=== PATIENT | female | born 1945 | race Caucasian/White ===

== ENCOUNTER 2022-05-23 09:07 | Inpatient (IN) | payer BC, OTHER ==
[~2022-05-23] VITALS: Ht 152.4 cm; Wt 68.5 kg
[~2022-05-23 09:07] MED LIST: ASPI-1749 PO; HYPERTENSION; METO50TE2 PO; SIMV-31 PO
[2022-05-23 09:22] VITALS: BP 158/67
--- NOTE | 2022-05-23 09:39 | NUR ---
Patient ambulated steady/even gait with RN assistance to bed 01.
--- NOTE | 2022-05-23 10:13 | NUR ---
PT TAKEN TO CT VIA W/C.
--- NOTE | 2022-05-23 10:34 | NUR ---
76F PRESENTS TO ED WITH C/O HEADACHE AND NAUSEA SINCE YESTERDAY. PT REPORTS A CONSTANT PULSATING LIKE 10/10 NONRADIATING PAIN. PT REPORTS TAKING TYLENOL AND ADVIL YESTERDAY WITH NO RELIEF. PT REPORTS TAKING ASPIRIN THIS MORNING AT 0400 WITH MILD RELIEF. PT DENIES DIZZINESS, VISION OR HEARING CHANGES, VOMITING OR DIARRHEA. PT PLACED ON BEDSIDE MONITOR, SIDE RAILS X2.
[2022-05-23 10:42] LABS: BASOPHILS # (AUTO) 0.1 K/uL (0.00-0.22); BASOPHILS % (AUTO) 0.7 % (0.0-2.0); EOSINOPHILS % (AUTO) 0.4 % (0.0-4.0); HEMATOCRIT 33.4 % (36-48); HEMOGLOBIN 11.7 g/dL (12.0-16.0); LYMPHOCYTES # (AUTO) 3.4 K/uL (2.5-16.5); LYMPHOCYTES % (AUTO) 32.9 % (20.5-51.1); MEAN CORPUSCULAR HEMOGLOBIN 33 pg (27-31); MEAN CORPUSCULAR HGB CONC 35 g/dL (33-37); MEAN CORPUSCULAR VOLUME 93.6 fL (80-94); MONOCYTES # (AUTO) 0.8 K/uL (0.8-1.0); MONOCYTES % (AUTO) 8.1 % (1.7-9.3); NEUTROPHILS # (AUTO) 5.9 K/uL (1.8-7.7); NEUTROPHILS % (AUTO) 57.9 % (42.2-75.2); PLATELET COUNT (AUTO) 238 K/uL (140-450); RED BLOOD CELL COUNT(AUTO) 3.56 MIL/uL (4.20-5.40); RED CELL DISTRIBUTION WIDTH 12.8 % (11.6-13.7); WHITE BLOOD COUNT (AUTO) 10.2 K/uL (4.8-10.8)
[2022-05-23 11:02] LABS: ALBUMIN 3.7 g/dL (3.4-5.0); ANION GAP 11.4 (8-16); ASPARTATE AMINOTRANSFERASE 22 U/L (15-37); CARBON DIOXIDE 29.1 mmol/L (21-32); CHLORIDE 101 mmol/L (98-107); CREATININE 1.1 mg/dL (0.6-1.3); GLUCOSE 105 mg/dL (74-106); POTASSIUM 4.5 mmol/L (3.5-5.1); SODIUM SERUM 137 mmol/L (136-145); TOTAL BILIRUBIN 0.3 mg/dL (0.0-1.0); UREA NITROGEN, BLOOD 20 mg/dL (7-18)
[2022-05-23] MEDS ORDERED: PROCHLORPERAZINE 10 MG/2 ML VIAL IM ONE (11:40)
[2022-05-23] MEDS ORDERED: KETOROLAC 15 MG/ML VIAL IM ONE (11:40)
--- NOTE | 2022-05-23 13:02 | NUR ---
Patient appears to be resting in bed eyes closed. Vital Signs within normal limits. Respirations even and unlabored.
[2022-05-23] MEDS ORDERED: METO50TE2 PO (13:48)
[2022-05-23] MEDS ORDERED: ASPI-1822 PO (13:48)
[2022-05-23] MEDS ORDERED: SIMV-372 PO (13:48)
[2022-05-23] MEDS ORDERED: HYDR-3320 PO (13:48)
[2022-05-23] MEDS ORDERED: ACETAMINOPHEN 325 MG TAB PO PRN (13:50)
[2022-05-23] MEDS ORDERED: DOCUSATE SODIUM 100 MG GELCAP PO PRN (13:50)
[2022-05-23] MEDS ORDERED: ZOLPIDEM 5 MG TAB PO PRN (13:50)
[2022-05-23] MEDS ORDERED: ONDANSETRON 4 MG/2 ML VIAL IM/IVP PRN (13:50)
[2022-05-23] MEDS ORDERED: POTASSIUM CHLORIDE 10 MEQ TABER PO PRN (13:50)
[2022-05-23] MEDS ORDERED: HYDROcodone/APAP 7.5/325 MG 1 TAB PO PRN (13:50)
[2022-05-23] MEDS ORDERED: guaiFENesin DM 200/20 MG-10 ML 10 ML UDC PO PRN (13:50)
[2022-05-23] MEDS ORDERED: HYDROmorphone 1 MG/ML AMP IVP SCH (14:00)
[2022-05-23] MEDS ORDERED: FUROSEMIDE 20 MG/2 ML VIAL IVP SCH (14:00)
[2022-05-23] MEDS ORDERED: MORPHINE SULFATE 2 MG/ML SYR IVP PRN (14:25)
[2022-05-23 14:33] LABS: FREE T4 (FREE THYROXINE) 1.13 ng/dL (0.76-1.46); MAGNESIUM 1.9 mg/dL (1.8-2.4); PHOSPHORUS 4.1 mg/dL (2.5-4.9); THYROID STIMULATING HORMONE 0.8 uIU/mL (0.34-3.74)
[2022-05-23] MEDS: ACETAZOLAMIDE SOD 250 MG TAB PO SCH ×2 (14:36→20:26)
[2022-05-23 14:42] LABS: PROTHROMBIN TIME 9.8 secs (10.8-13.4)
--- NOTE | 2022-05-23 15:40 | NUR ---
PT AMBULATED TO RESTROOM WITH STEADY GAIT.
[2022-05-23 17:20] LABS: BILIRUBIN,URINE NEGATIVE (NEGATIVE); BLOOD, URINE NEGATIVE (NEGATIVE); COLOR,URINE YELLOW (YELLOW); LEUKOCYTE ESTERASE ,URINE 1+ (NEGATIVE); NITRITE, URINE NEGATIVE (NEGATIVE); UGLUCOSE NEGATIVE (NEGATIVE)
--- NOTE | 2022-05-23 17:33 | NUR ---
Patient will be admitted to care of DR. MARSHALL. Admited to Med/Surg. Will go to room 123A. Belongings list completed. Report to DAVID GAUTHIER.
[2022-05-23 17:35] VITALS: BP 145/57
[2022-05-23 17:39] LABS: APPEARANCE,URINE HAZY (CLEAR)
[2022-05-23 18:26] LABS: RBC,URINE NONE SEEN /HPF (0-5)
--- NOTE | 2022-05-23 19:30 | NUR ---
RECEIVED PT FROM MORNING SHIFT NURSE. PT IS AOX4, ARABIC SPEAKING, AMBULATORY, ABLE TO VERBALIZE NEEDS AND ABLE TO FOLLOW COMMANDS. PT IS ON ROOM AIR AND ON REGULAR DIET. PT HAS IV ON RIGHT HAND GAUGE 20 SALINE LOCK. PT SKIN IS INTACT. NO COMPLAIN OF PAIN AT THIS TIME. NO S/S RESPIRATORY DISTRESS NOTED. ALL SAFETY MEASURES IMPLEMENTED. BED IN LOW POSITION, BED WHEELS ON LOCKED AND CALL LIGHT WITHIN REACH.
[2022-05-23 20:00] VITALS: BP 140/45
[2022-05-23] MEDS: SIMVASTATIN 20 MG TAB PO SCH (20:27)
--- NOTE | 2022-05-23 20:27 | NUR ---
SCHEDULED AND PRESCRIBED MEDICATION WAS GIVEN TO PT PER MD ORDER. ALL SAFETY MEASURES IMPLEMENTED. BED IN LOW POSITION, BED WHEELS ON LOCKED AND CALL LIGHT WITHIN REACH.
--- NOTE | 2022-05-23 22:00 | NUR ---
PT IS WATCHING TELEVISION. NO COMPLAIN OF PAIN. NO S/S OF RESPIRATORY DISTRESS NOTED. ALL SAFETY MEASURES IMPLEMENTED. BED IN LOW POSITION, BED WHEELS ON LOCKED AND CALL LIGHT WITHIN REACH.
--- NOTE | 2022-05-23 22:30 | NUR ---
PT WAS TRANSFERRED FROM ROOM 123A TO ROOM 107A DUE TO OTHER PT NEEDS ROOM OXYGEN. ALL SAFETY MEASURES IMPLEMENTED. BED IN LOW POSITION, BED WHEELS ON LOCKED AND CALL LIGHT WITHIN REACH.
--- NOTE | 2022-05-24 | NUR ---
PT IS SLEEPING. CHEST RISE AND FALL SYMMETRICALLY NOTED. RESPIRATION IS EVEN AND UNLABORED. ALL SAFETY MEASURES IMPLEMENTED. BED IN LOW POSITION, BED WHEELS ON LOCKED AND CALL LIGHT WITHIN REACH.
--- NOTE | 2022-05-24 02:00 | NUR ---
CHECKED PT, STILL SLEEPING. CHEST RISE AND FALL SYMMETRICALLY NOTED. RESPIRATION IS EVEN AND UNLABORED. ALL SAFETY MEASURES IMPLEMENTED. BED IN LOW POSITION, BED WHEELS ON LOCKED AND CALL LIGHT WITHIN REACH.
--- NOTE | 2022-05-24 04:00 | NUR ---
PT IS NOW AWAKE. SITTING ON THE BED. NO COMPLAIN OF PAIN AND NO S/S OF RESPIRATORY DISTRESS NOTED. ALL SAFETY MEASURES IMPLEMENTED. BED IN LOW POSITION, BED WHEELS ON LOCKED AND CALL LIGHT WITHIN REACH.
[2022-05-24 06:57] LABS: BASOPHILS # (AUTO) 0.1 K/uL (0.00-0.22); BASOPHILS % (AUTO) 1.1 % (0.0-2.0); EOSINOPHILS # (AUTO) 0.1 K/uL (0-0.4); EOSINOPHILS % (AUTO) 0.9 % (0.0-4.0); HEMATOCRIT 32.6 % (36-48); HEMOGLOBIN 11.4 g/dL (12.0-16.0); LYMPHOCYTES # (AUTO) 3.3 K/uL (2.5-16.5); LYMPHOCYTES % (AUTO) 41.4 % (20.5-51.1); MEAN CORPUSCULAR HEMOGLOBIN 33 pg (27-31); MEAN CORPUSCULAR HGB CONC 35 g/dL (33-37); MEAN CORPUSCULAR VOLUME 94.2 fL (80-94); MONOCYTES # (AUTO) 0.7 K/uL (0.8-1.0); NEUTROPHILS # (AUTO) 3.8 K/uL (1.8-7.7); NEUTROPHILS % (AUTO) 47.6 % (42.2-75.2); PLATELET COUNT (AUTO) 235 K/uL (140-450); RED BLOOD CELL COUNT(AUTO) 3.46 MIL/uL (4.20-5.40); RED CELL DISTRIBUTION WIDTH 12.9 % (11.6-13.7)
--- NOTE | 2022-05-24 07:28 | NUR ---
PT IS STABLE. ENDORSED PT TO MORNING SHIFT NURSE FOR CONTINUITY OF CARE.
[2022-05-24 07:40] LABS: ANION GAP 13.9 (8-16); CARBON DIOXIDE 26.1 mmol/L (21-32); CHLORIDE 100 mmol/L (98-107); CREATININE 1.2 mg/dL (0.6-1.3); GLUCOSE 97 mg/dL (74-106); SODIUM SERUM 136 mmol/L (136-145); UREA NITROGEN, BLOOD 29 mg/dL (7-18)
[2022-05-24 08:00] VITALS: BP 157/63
--- NOTE | 2022-05-24 08:00 | NUR ---
RECEIVED REPORT FROM SR. DIRECTOR FOR CONTINUITY OF CARE. PATIENT ALERT AWAKE ORIENTED X4, NOT IN ANY DISTRESS NOTED. HEPLOCK ON THE RIGHT WRIST DRY AND INTACT. DENIES PAIN AT THIS TIME. CALL LIGHT WITHIN REACH. NEEDS ATTENDED. WILL CONTINUE TO MONITOR.
[2022-05-24 08:07] LABS: T4 (THYROXINE) 6.9 ug/dL (4.5-12.0)
[2022-05-24] MEDS: PANTOPRAZOLE 40 MG TABEC PO SCH (08:41)
[2022-05-24] MEDS: METOPROLOL SUCCINATE 50 MG TABER PO SCH (08:42)
[2022-05-24] MEDS: ASPIRIN 81 MG TAB.CHEW PO SCH (08:42)
[2022-05-24] MEDS: LOSARTAN 50 MG TAB PO SCH (08:42)
[2022-05-24] MEDS: ACETAZOLAMIDE SOD 250 MG TAB PO SCH ×2 (08:43→20:20)
[2022-05-24] MEDS ORDERED: NON-FORMULARY ITEM (Losartan/Hydrochlorothiazide (Losartan-Hctz 100-25 mg Tab) 1 TAB) PO SCH (09:00)
--- NOTE | 2022-05-24 09:00 | NUR ---
DUE MEDICATION GIVEN AND TOLERATED WELL. WILL CONTINUE TO MONITOR.
[2022-05-24] MEDS: hydroCHLOROthiazide 25 MG TAB PO SCH (09:52)
[2022-05-24] MEDS ORDERED: LEVOFLOXACIN 500 MG/D5W PREMIX 100 ML IV SCH (11:20)
[2022-05-24] MEDS ORDERED: FUROSEMIDE 20 MG/2 ML VIAL IVP SCH (11:20)
--- NOTE | 2022-05-24 12:00 | NUR ---
LEVAQUIN IVPB STARTED AND INFUSING WELL. NO REACTION NOTED.
--- NOTE | 2022-05-24 13:00 | NUR ---
DISCHARGE PLANNING PATIENT IS A 76-YEAR-OLD FEMALE ADMITTED AT THE [facility]/ED ON 05/23/2022 DUE TO INTRACRANIAL HYPERTENSION. SW MET WITH PATIENT AT BEDSIDE TO DISCUSS AND GATHER PATIENT'S COLLATERAL INFORMATION. PATIENT WAS AWAKE AND ALERT ABLE TO PROVIDE HER OWN INFORMATION, PATIENT IS MARSHALLESE SPEAKING ONLY AND REPORTED LIVING AT HOME WITH HER MISAEL BRADLEY WHO IS HER EMERGENCY CONTACT AND MEDICAL DECISION MAKERS, WELL HER ADULT DAUGTHER, AND GRANDDAUGHTER SHERRELL MARTINEZ . PER PATIENT SHE HAS GOOD FAMILY SUPPORT. PATIENT STATED NOT HAVING ADVANCE DIRECTIVES AND WAS NOT INTERESTED ON GETTING INF. FORMS PROVIDED BY SW. PATIENT REPORTED BEEN ACTIVE AND INDEPENDENT AT HOME BEFORE HOSPITALIZATION PATIENT ALSO REPORTED NOT HAVING ANY ISSUES TAKING OR GETTING HER MEDICATIONS FROM [facility] ON [facility] IN [facility]. PATIENT STATED NOT HAVING ANY DME AT HOME. PER PATIENT SHE HAS PCP DR. LLUVIA DREW AND REPORTED THAT HER LAST VISIT WAS ABOUT 3 MONTHS AGO AND HAS NO FOLLOW UP APPOINTMENT SCHEDULED AT THIS TIME. SW EXPLAINED TO PATIENT THE NEED TO SCHEDULED A FOLLOW UP APPOINTMENT WITH PCP WITHIN 5-7 DAYS. WITH HER PCP AFTER DC. PATIENT AGREED AND REPORTED THAT SHE OR HER GRAND DAUGTHER WILL BE MAKING HER FOLLOW UP APPOINTMENT; WITH PRIMARY DOCTOR AFTER SHE DISCHARGES FROM [facility]. PATIENT STATED THAT HER , DAUGTHER, OR GRANDDAUGHTER WILL BE ASSISTING HER WITH TRANSPORTATION BACK HOME WHEN SHE IS READY AND STABLE FOR DISCHARGE. SW/CM WILL FOLLOW NEEDED.
[2022-05-24] MEDS: TIMOLOL OP 0.5% 5 ML BTL OP SCH ×2 (13:28→20:20)
[2022-05-24 16:00] VITALS: BP 157/63
--- NOTE | 2022-05-24 17:36 | NUR ---
PATIENT HAS BEEN SCREENED AND CATEGORIZED LOW NUTRITION RISK. PATIENT WILL BE SEEN WITHIN 7 DAYS OF ADMISSION. 05/30/[address] VIDA STILL RD
--- NOTE | 2022-05-24 19:30 | NUR ---
RECEIVED REPORT FROM DAY NURSE FOR CONTINUITY OF CARE. PATIENT AMBULATING FROM THE RESTROOM, GAIT SLOW AND STEADY. PATIENT IS ALERT AND ORIENTED. IV ACCESS SITE ON R WRIST, PATENT AND INTACT, FLUSH WITHOUT RESISTANCE. CALL LIGHT WITHIN REACH. ALL SAFETY PRECAUTIONS MAINTAINED. FAMILY AT BEDSIDE.
[2022-05-24] MEDS: SIMVASTATIN 20 MG TAB PO SCH (20:22)
--- NOTE | 2022-05-24 20:25 | NUR ---
SCHEDULED MEDICATIONS GIVEN ORDERED. WILL CONTINUE TO MONITOR THE PATIENT.
--- NOTE | 2022-05-25 01:35 | NUR ---
PATIENT USED THE RESTROOM. AMBULATORY, GAIT IS SLOW AND STEADY.
[2022-05-25 04:00] VITALS: BP 130/47
--- NOTE | 2022-05-25 04:10 | NUR ---
PATIENT IS ASLEEP, BREATHING EVEN AND NON LABORED ON ROOM AIR, NO SIGNS OF PAIN/DISCOMFORT NOTED. CALL LIGHT WITHIN REACH. SAFETY MEASURES IN PLACE. WILL CONTINUE TO MONITOR THE PATIENT.
[2022-05-25 07:00] LABS: BASOPHILS # (AUTO) 0.1 K/uL (0.00-0.22); BASOPHILS % (AUTO) 0.8 % (0.0-2.0); EOSINOPHILS # (AUTO) 0.1 K/uL (0-0.4); EOSINOPHILS % (AUTO) 0.6 % (0.0-4.0); HEMATOCRIT 32.7 % (36-48); HEMOGLOBIN 11.3 g/dL (12.0-16.0); LYMPHOCYTES % (AUTO) 34.8 % (20.5-51.1); MEAN CORPUSCULAR HEMOGLOBIN 32 pg (27-31); MEAN CORPUSCULAR HGB CONC 35 g/dL (33-37); MEAN CORPUSCULAR VOLUME 93.3 fL (80-94); MONOCYTES # (AUTO) 0.9 K/uL (0.8-1.0); MONOCYTES % (AUTO) 7.6 % (1.7-9.3); NEUTROPHILS # (AUTO) 6.5 K/uL (1.8-7.7); NEUTROPHILS % (AUTO) 56.2 % (42.2-75.2); PLATELET COUNT (AUTO) 240 K/uL (140-450); RED CELL DISTRIBUTION WIDTH 12.6 % (11.6-13.7); WHITE BLOOD COUNT (AUTO) 11.6 K/uL (4.8-10.8)
[2022-05-25 07:02] LABS: ANION GAP 17.4 (8-16); CHLORIDE 97 mmol/L (98-107); CREATININE 1.4 mg/dL (0.6-1.3); GLUCOSE 112 mg/dL (74-106); POTASSIUM 3.4 mmol/L (3.5-5.1); SODIUM SERUM 134 mmol/L (136-145); UREA NITROGEN, BLOOD 29 mg/dL (7-18)
--- NOTE | 2022-05-25 07:20 | NUR ---
ENDORSED PATIENT TO DAY NURSE FOR CONTINUITY OF CARE. NEEDS MET THROUGHOUT THE SHIFT. PATIENT IN STABLE CONDITION.
--- NOTE | 2022-05-25 07:21 | NUR ---
RECEIVED REPORT FROM COMPUTER REPAIR ENGINEER NURSE KRYSTA FOR CONTINUITY OF CARE. PT AWAKE IN BED. RESPIRATIONS EVEN AND UNLABORED ON RA. NO DISTRESS NOTED. CONTINENT TO BOWEL AND BLADDER. AMBULATORY. SKIN INTACT, WARM AND DRY TO TOUCH. CALL LIGHT WITHIN REACH. SAFETY PRECAUTIONS IN PLACE.
[2022-05-25 08:00] VITALS: BP 135/56
--- NOTE | 2022-05-25 08:20 | NUR ---
PT CHECKED AND SEEN BY DR JONES.
[2022-05-25] MEDS: TIMOLOL OP 0.5% 5 ML BTL OP SCH (08:55)
[2022-05-25] MEDS: PANTOPRAZOLE 40 MG TABEC PO SCH (08:56)
[2022-05-25] MEDS: ASPIRIN 81 MG TAB.CHEW PO SCH (08:57)
[2022-05-25] MEDS: LOSARTAN 50 MG TAB PO SCH (08:57)
[2022-05-25] MEDS: METOPROLOL SUCCINATE 50 MG TABER PO SCH (08:58)
[2022-05-25] MEDS: hydroCHLOROthiazide 25 MG TAB PO SCH (08:58)
[2022-05-25] MEDS ORDERED: LEVOFLOXACIN 250 MG/D5 PREMIX 50 ML IV SCH (09:00)
[2022-05-25] MEDS: ACETAZOLAMIDE SOD 250 MG TAB PO SCH (09:03)
--- NOTE | 2022-05-25 09:09 | NUR ---
ADMINISTERED DUE MEDS. PT TOLERATED WELL. IV MED GIVEN BY DAVID HUERTA. NO ADVERSE REACTION NOTED.
--- NOTE | 2022-05-25 12:15 | NUR ---
PT SITTING IN BED, EATING LUNCH. NO DISTRESS NOTED. SAFETY PRECAUTIONS IN PLACE.
[2022-05-25 13:18] VITALS: BP 135/56
--- NOTE | 2022-05-25 14:33 | NUR ---
DISCHARGE PAPER DISCUSSED WITH THE PT. PT VERBALIZED UNDERSTANDING. DAUGHTER AT BEDSIDE, TO DRIVE PT HOME. PT GETTING READY TO GO HOME.
--- NOTE | 2022-05-25 15:05 | NUR ---
PT DC HOME. REMOVED IV CATHETER TIP INTACT. REMOVED ID WRIST BAND. ALL BELONGINGS TAKEN UPON DC. PT IS IN STABLE CONDITION.
[2022-05-28] MEDS ORDERED: ASPI-1822 PO (10:20)
[2022-05-28] MEDS ORDERED: METO25TE2 PO (10:21)
[2022-05-28] MEDS ORDERED: SIMV-372 PO (10:21)
== END 2022-05-25 15:14 | disposition home or self-care (01) | DRG 103 ==
LOC: MED 09:07 → MTU 13:39
PROVIDERS: ADMIT Family Medicine; ATTEND Family Medicine
DX: R51.9 Headache, unspecified (principal); N17.9 Acute kidney failure, unspecified; N39.0 Urinary tract infection, site not specified; E86.0 Dehydration; G43.909 Migraine, unspecified, not intractable, without status migrainosus; E78.00 Pure hypercholesterolemia, unspecified; I11.0 Hypertensive heart disease with heart failure; Z20.822 Contact with and (suspected) exposure to COVID-19; I50.9 Heart failure, unspecified; D53.9 Nutritional anemia, unspecified; Z88.0 Allergy status to penicillin; Z87.820 Personal history of traumatic brain injury; Z79.82 Long term (current) use of aspirin; Z79.899 Other long term (current) drug therapy
CPT/HCPCS: 36415; 70450; 80048; 80053; 81001; 82150; 83036; 83690; 83735; 83880; 84100; 84436; 84439; 84443; 84479; 85025; 85610; 85730; 87081; 87086; 96372; 96374; 99285; J0780; J1170; J1885; J1940; J1956; Q0163